=== PATIENT | female | born 1960 | race Caucasian/White ===

== ENCOUNTER 2024-09-21 14:27 | Observation (INO) ==
--- NOTE | 2024-09-21 15:12 | Emergency Department Note ---
HPI - General Adult General Chief complaint: Dizziness Stated complaint: Dizziness, Flank pain Time Seen by Provider: 09/21/24 14:35 Source: patient Mode of arrival: walk-in Limitations: no limitations History of Present Illness HPI narrative: This is a 63 year old female patient that presents to the ER with c/o having dizziness, generalized weakness, fatigue since Thursday. Patient states yesterday and today she felt dizzy and like she was going to pass out. Patient denies any chest pain currently. Patient denies any SOB, back pain, abdominal pain, numbness, or tingling. Onset (ago): day(s) (3) Location: Reports chest Radiation: Reports non-radiation Severity: mild Quality: Reports aching Pain Consistency: Reports intermittent Relieving factors: Reports none Exacerbating factors: Reports none Associated symptoms: Reports weakness Treatments prior to arrival: Reports none Related Data Home Medications Medication Instructions Recorded Confirmed losartan 100 1 tab PO DAILY 02/22/24 02/22/24 mg-hydrochlorothiazide 12.5 mg tablet Allergies Allergy/AdvReac Type Severity Reaction Status Date / Time No Known Drug Allergies Allergy Verified 09/21/24 15:23 Review of Systems Status of ROS 10 or more systems reviewed and unremark able except as noted in history and below Constitutional Denies: fever, chills, change in weight, fatigue, malaise, night sweats or change in sleep pattern Eyes Denies: change in vision, blurry vision, blind spots, light sensitivity, eye discomfort, eye discharge, dry eyes or increased production of tears Ears, nose, mouth, and throat Denies: throat pain, neck pain, throat swelling, difficulty swallowing, hoarseness or mouth pain Cardiovascular Reports: chest pain and lightheadedness; Denies: palpitations, edema, swelling of feet/ankles, shortness of breath with exertion, shortness of breath when lying down, leg pain with exertion or bluish discoloration of hands/feet Respiratory Denies: shortness of breath, cough, wheezing, stridor, pain on inspiration, change in phlegm color, coughing up blood or chest congestion Gastrointestinal Denies: abdominal pain, nausea, vomiting, coffee grounds in vomit, heartburn, diarrhea, constipation or bloating Genitourinary Denies: painful urination, urinary frequency, urinary urgency, urinary incontinence, blood in urine or difficulty voiding Musculoskeletal Denies: back pain, neck pain, extremity pain, extremity swelling, joint pain, limited range of motion or joint swelling Integumentary/Breast Denies: rash, itching, redness, skin pain, skin tenderness, skin swelling, sores or new lesion Neurological Reports: dizziness and vertigo; Denies: headache, numbness in extremities, weakness in extremities, lack of coordination, confusion, behavioral changes or slurred speech Psychiatric Denies: anxiety, mood swings, panic attacks, change in sleep pattern, hopelessness or loss of interest Endocrine Denies: excessive urination, excessive thirst, fatigue, cold intolerance, excessive sweating or flushing Hematologic/Lymphatic Denies: easy bruising, easy bleeding or enlarged lymph nodes Allergic/Immunologic Denies: hives, throat swelling, tongue swelling, facial swelling, wheezing or itchy eyes [facility] Medical History (Updated 09/21/24 @ 15:25 by Josephine Aranda RN) Tear of left meniscus as current injury HTN (hypertension) Surgical History Hx of section History of tonsillectomy Social History (Updated 02/23/24 @ 06:28 by Tigist Vitale APRN) Smoking status: never smoker Within the past year, how often did you have a drink containing alcohol: never Score interpretation: A score less than 3 is consistent with normal alcohol consumption. Non-prescribed substance use: denies use Problems where you live: no known problems Exam Constitutional: normal general appearance Vital Signs - 24 hr 09/21/24 14:35 Temperature 98 F Pulse Rate 84 Respiratory Rate 16 Blood Pressure 165/78 Pulse Oximetry 98 Oxygen Delivery Me thod Room Air HENMT: normocephalic, head/scalp atraumatic, hearing grossly normal bilaterally, external ears normal, nasal mucous membranes normal, external nose normal, oral mucous membranes normal and oropharynx normal Eyes: PERRL, EOMs intact bilaterally, conjunctivae normal and no scleral icterus Neck/C-Spine: visual inspection normal and trachea midline Lymph: no lymphadenopathy noted Chest: inspection of chest normal Respiratory: breath sounds equal bilaterally, normal respiratory effort, clear to auscultation bilaterally, no wheezes, no rales, no retractions, no use of accessory muscles and chest percussion normal Cardiovascular: normal heart rate noted, regular rhythm noted, no gallop, no rub, no murmur, no JVD, no clicks, peripheral pulses 2+ throughout, no bruits noted and no additional abnormal heart sounds Gastrointestinal: abdomen normal to inspection, abdomen soft to palpation, nontender to palpation, nontender to percussion, nondistended, normoactive bowel sounds, no hepatosplenomegaly, no masses, no pulsatile mass, no ascites and no hernia Genitourinary: no CVA tenderness Back/Pelvis: spine normal to inspection Extremities: normal to inspection, normal to palpation, no tenderness, full ROM, no joint enlargement and no deformity 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 VSS, no s/s of acute distress noted Vital Signs Vital signs: Vital Signs Temperature 98 F 09/21/24 14:35 Pulse Rate 84 09/21/24 14:35 Respiratory Rate 16 09/21/24 14:35 Blood Pressure 165/78 09/21/24 14:35 Pulse Oximetry 98 09/21/24 14:35 Oxygen Delivery Method Room Air 09/21/24 14:35 Temperature 98 F 09/21/24 14:35 Pulse Rate 84 09/21/24 14:35 Respiratory Rate 16 09/21/24 14:35 Blood Pressure 165/78 09/21/24 14:35 Pulse Oximetry 98 09/21/24 14:35 Oxygen Delivery Method Room Air 09/21/24 14:35 Medical Decision Making Differential Diagnosis Differential Diagnosis: viral illness Medical Records Medical records reviewed: Yes I reviewed the patient's medical records Lab Data Lab results reviewed: Yes I reviewed the patient's lab results Labs: Lab Results 09/21/24 Range/Units 14:45 WBC 9.8 H (4.3-9.3) K/uL RBC 4.7 (4.00-5.50) M/uL Hgb 14.6 (12.5-15.8) gm/dL Hct 43.3 (35.9-46.7) % MCV 91.9 (81.0-93.7) fl MCH 31.1 (27.6-32.2) pg MCHC 33.8 (33.1-35.3) g/dl RDW 13.0 (11.4-14.2) % Plt Count 320 (152-353) K/uL MPV 8.3 (6.9-10.8) fl Gran % 57.8 (47.8-71.3) % Lymph % (Auto) 31.3 (20.0-43.0) % [place] % (Auto) 9.6 (3.6-9.8) % Eos % (Auto) 0.8 (0.4-2.8) % Baso % (Auto) 0.5 (0.1-0.85) Lymph # (Auto) 3.1 (1.1-3.1) [place] # (Auto) 0.9 L (1.1-3.1) Eos # (Auto) 0.1 (0.0-0.2) Baso # (Auto) 0.1 (0.0-0.1) Absolute Gran (auto) 5.7 (2.3-6.0) Sodium 138 (136-145) mmol/L Potassium 3.8 (3.6-5.2) mmol/L Chloride 99.0 (98-107) mmol/L Carbon Dioxide 31 (21-32) mmol/L Anion Gap 8.0 (4-14) mEq/L BUN 21 H (7-18) mg/dL Creatinine 1.0 (0.6-1.3) mg/dL Estimated GFR 62.5 (>59.9) Glucose 100 (70-110) mg/dL Calcium 9.4 (8.5-10.1) mg/dL Total Bilirubin 0.83 (0.0-1.0) mg/dL AST 25 (15-37) U/L ALT 28 L (30-65) U/L Alkaline Phosphatase 63 (50-136) U/L Troponin I High Sens <4.00 L (4.0-60.4) ng/L Total Protein 7.7 (6.4-8.2) g/dL Albumin 4.1 (3.4-5.0) g/dL Imaging Data CT scan - head: Attestation: I have reviewed the pertinent imaging results. ECG Data Attestation: I have reviewed the pertinent ECG results. Discharge Plan Discharge Patient Disposition: Admitted As Observation Condition: Stable Chief Complaint: Dizziness Clinical Impression: Near syncope, Chest pain, Benign paroxysmal positional vertigo Prescriptions: No Action losartan-hydrochlorothiazide 100-12.5 mg tablet 1 tab PO DAILY Patient Comments: TAKE 1 TABLET(S) ORAL EVERY DAY NEEDS LABS AND FOLLOW UP Print Language: Trinidadian Referrals: Rhonda Hyde NP [Primary Care Provider] - Time of Disposition: 15:44
[2024-09-21 15:17] LABS: Basophils #(Absolute) Auto 0.1 (0.0-0.1); Basophils%(Percent) Auto 0.5 (0.1-0.85); Eosinophils#(Absolute)Auto 0.1 (0.0-0.2); Eosinophils%(Percent) Auto 0.8 % (0.4-2.8); Granulocytes % - Auto 57.8 % (47.8-71.3); Granulocytes#(Absolute)- Auto 5.7 (2.3-6.0); Hematocrit 43.3 % (35.9-46.7); Mean Corpuscular Volume 91.9 fl (81.0-93.7); Monocytes #(Absolute)- Auto 0.9 (1.1-3.1); Monocytes %(Percent)- Auto 9.6 % (3.6-9.8); Platelet Count 320 K/uL (152-353); White Blood Count 9.8 K/uL (4.3-9.3)
[2024-09-21 15:19] LABS: Carbon Dioxide 31 mmol/L (21-32); Glucose 100 mg/dL (70-110); Potassium 3.8 mmol/L (3.6-5.2); Sodium 138 mmol/L (136-145)
[2024-09-21] MEDS ORDERED: 0.9 % SODIUM CHLORIDE 1000 ML 1,000 ML IV ONE (19:10)
[2024-09-21] MEDS: 0.9 % SODIUM CHLORIDE 1000 ML 1,000 ML IV STA (19:22)
[2024-09-21] MEDS ORDERED: NITROGLYCERIN 0.4 MG TAB.SUBL (BOTTLE) SL PRN (19:32)
[2024-09-21] MEDS ORDERED: MORPHINE SULFATE 2 MG/ML CARTRIDGE IV PRN (19:32)
[2024-09-22 06:57] LABS: Basophils #(Absolute) Auto 0.1 (0.0-0.1); Eosinophils#(Absolute)Auto 0.1 (0.0-0.2); Monocytes %(Percent)- Auto 9.1 % (3.6-9.8)
[2024-09-22 06:59] LABS: Basophils%(Percent) Auto 0.6 (0.1-0.85); Eosinophils%(Percent) Auto 1.2 % (0.4-2.8); Granulocytes#(Absolute)- Auto 5.8 (2.3-6.0); Hematocrit 38.7 % (35.9-46.7); Mean Corpuscular Volume 92.4 fl (81.0-93.7); Platelet Count 250 K/uL (152-353); White Blood Count 11.1 K/uL (4.3-9.3)
[2024-09-22 07:16] LABS: Potassium 3.8 mmol/L (3.6-5.2)
[2024-09-22 08:15] LABS: INR 0.97
[2024-09-22 08:17] VITALS: RESP 19
[2024-09-22] MEDS: ASPIRIN 81 MG TAB.CHEW PO SCH (08:57)
[2024-09-22] MEDS: hydroCHLOROthiazide 25 MG TABLET PO SCH (08:59)
[2024-09-22] MEDS: ENOXAPARIN SODIUM 40 MG/0.4 ML SYRINGE SUBQ SCH (09:24)
[2024-09-22] MEDS: LOSARTAN POTASSIUM 50 MG TABLET PO SCH (09:40)
[2024-09-22 12:42] VITALS: BP 146/79; PULSE 80; TEMP 97.6
--- NOTE | 2024-09-22 14:49 | Short Stay Summary ---
H&P: HPI History of Present Illness Chief complaint: Dizziness, Flank pain Narrative: This is a 63 year old female patient that presents to the ER with c/o having dizziness, generalized weakness, fatigue since Thursday. Patient states yesterday and today she felt dizzy and like she was going to pass out. Patient denies any chest pain currently. Patient denies any SOB, back pain, abdominal pain, numbness, or tingling. Admitted patient to med/surg for further observation and treatment. Review of Systems Status of ROS 10 or more systems reviewed and unremark able except as noted in history and below Constitutional Denies: fever, chills, change in weight, fatigue, malaise, night sweats or change in sleep pattern Eyes Denies: change in vision, blurry vision, blind spots, light sensitivity, eye discomfort, eye discharge, dry eyes or increased production of tears Ears, nose, mouth, and throat Reports: vertigo; Denies: throat pain, neck pain, throat swelling, difficulty swallowing, hoarseness or mouth pain Cardiovascular Reports: chest pain and lightheadedness; Denies: palpitations, edema, swelling of feet/ankles, shortness of breath with exertion, shortness of breath when lying down, leg pain with exertion or bluish discoloration of hands/feet Respiratory Denies: shortness of breath, cough, wheezing, stridor, pain on inspiration, change in phlegm color, coughing up blood or chest congestion Gastrointestinal Denies: abdominal pain, nausea, vomiting, coffee grounds in vomit, heartburn, diarrhea, constipation, bloating or difficulty swallowing Genitourinary Denies: painful urination, urinary frequency, urinary urgency, urinary incontinence, blood in urine or difficulty voiding Musculoskeletal Denies: back pain, neck pain, extremity pain, extremity swelling, joint pain, limited range of motion or joint swelling Integumentary/Breast Denies: rash, itching, redness, skin pain, skin tenderness, skin swelling, sores or new lesion Neurological Reports: dizziness and vertigo; Denies: headache, numbness in extremities, weakness in extremities, lack of coordination, confusion, behavioral changes or slurred speech Psychiatric Denies: anxiety, mood swings, panic attacks, change in sleep pattern, hopelessness or loss of interest Endocrine Denies: excessive urination, excessive thirst, fatigue, cold intolerance, excessive sweating or flushing Hematologic/Lymphatic Denies: easy bruising, easy bleeding or enlarged lymph nodes Allergic/Immunologic Denies: hives, throat swelling, tongue swelling, facial swelling, wheezing or itchy eyes PFSH PFSH Medical History Tear of left meniscus as current injury HTN (hypertension) Surgical History Hx of section History of tonsillectomy Social History Smoking status: never smoker Within the past year, how often did you have a drink containing alcohol: never Score interpretation: A score less than 3 is consistent with normal alcohol consumption. 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 Constitutional: normal general appearance, no apparent distress, abnormal body habitus (obese), no limitations and alert Vital Signs - 24 hr 09/21/24 14:35 09/21/24 19:34 09/21/24 20:00 Temperature 98 F 98 F 98.3 F Pulse Rate 84 84 Pulse Rate [Bilate ral] 69 Respiratory Rate 16 16 18 Blood Pressure 165/78 165/78 Blood Pressure [Ri ght Arm] 143/78 Pulse Oximetry 98 98 99 Oxygen Delivery Me thod Room Air Room Air Fraction of Inspir ed Oxygen 09/21/24 21:34 09/21/24 23:45 09/22/24 03:44 Temperature 98.3 F 97.6 F Pulse Rate Pulse Rate [Bilate ral] 75 71 Respiratory Rate 16 20 Blood Pressure Blood Pressure [Ri ght Arm] 131/80 112/67 Pulse Oximetry 97 97 99 Oxygen Delivery Me thod Room Air Room Air Room Air Fraction of Inspir ed Oxygen 21 09/22/24 08:00 09/22/24 08:14 09/22/24 09:40 Temperature 98.4 F Pulse Rate Pulse Rate [Bilate ral] 65 Respiratory Rate 19 Blood Pressure 125/64 125/64 Blood Pressure [Ri ght Arm] 125/64 Pulse Oximetry 97 Oxygen Delivery Me thod Room Air Fraction of Inspir ed Oxygen 09/22/24 11:50 09/22/24 12:41 Temperature 97.6 F Pulse Rate Pulse Rate [Bilate ral] 72 80 Respiratory Rate 19 Blood Pressure Blood Pressure [Ri ght Arm] 145/78 146/79 Pulse Oximetry 94 L 97 Oxygen Delivery Me thod Room Air Room Air Fraction of Inspir ed Oxygen HENMT: normocephalic, head/scalp atraumatic, hearing grossly normal bilateral ly, external ears normal, nasal mucous membranes normal, external nose normal, oral mucous membranes normal and oropharynx normal Eyes: PERRL, EOMs intact bilaterally, conjunctivae normal and no scleral icterus Neck/C-Spine: visual inspection normal and trachea midline Lymph: no lymphadenopathy noted Chest: inspection of chest normal Respiratory: breath sounds equal bilaterally, normal respiratory effort, clear to auscultation bilaterally, no wheezes, no rales, no retractions, no use of accessory muscles and chest percussion normal Cardiovascular: normal heart rate noted, regular rhythm noted, no gallop, no rub, no murmur, no JVD, no clicks, peripheral pulses 2+ throughout, no bruits noted and no additional abnormal heart sounds Gastrointestinal: abdomen normal to inspection, abdomen soft to palpation, nontender to palpation, nontender to percussion, nondistended, normoactive bowel sounds, no hepatosplenomegaly, no masses, no pulsatile mass, no ascites and no hernia Genitourinary: no CVA tenderness Back/Pelvis: spine normal to inspection Extremities: normal to inspection, normal to palpation, no tenderness, full ROM, no joint enlargement and no deformity 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, no movement abnormality noted, no focal motor deficit noted, no sensory deficits noted, gait normal, speech normal, coordination normal, no pronator drift noted, no fasciculations noted and GCS normal Psychiatry: mental status grossly normal, oriented x3, thought process normal and cooperative Feel stressed/tense/nervous/anxious/difficulty sleeping: to some extent Life stressors: other (event that caused her to sweat and nearly pass out yesterday) Skin: skin color abnormal Reports (pale), no rash, no lesions, no ecchymosis noted, no wounds, no lacerations, skin turgor normal, no jaundice, no petechiae, no mottling, nails normal and no alopecia Assessment and Plan Assessment and Plan (1) Syncope: Qualifiers: Syncope type: unspecified Qualified Code(s): R55 - Syncope and collapse Code(s): R55 - Syncope and collapse (2) Dizziness: Code(s): R42 - Dizziness and giddiness (3) Muscle weakness (generalized): Code(s): M62.81 - Muscle weakness (generalized) (4) Fatigue: Qualifiers: Fatigue type: unspecified Qualified Code(s): R53.83 - Other fatigue Code(s): R53.83 - Other fatigue (5) Leukocytosis: Qualifiers: Leukocytosis type: unspecified Qualified Code(s): D72.829 - Elevated w tiffany blood cell count, unspecified Code(s): D72.829 - Elevated white blood cell count, unspecified (6) Elevated d-dimer: Assessment and Plan: Resolved. Code(s): R79.89 - Other specified abnormal findings of blood chemistry Plan Losartan Potassium 100 mg PO DAILY Aspirin 324 mg PO DAILY Hydrochlorothiazide 12.5 mg PO DAILY Enoxaparin Sodium 40 mg SUBQ DAILY Nitroglycerin 0.4 mg SL Q5M PRN Morphine Sulfate 2 mg IV Q4H PRN A1C Check Glucose Tolerance Test Out-patient Nuclear Stress Test - Recommended Discharge home for self care. Results Labs Labs: CBC 09/21/24 09/22/24 Range/Units 14:45 06:45 WBC 9.8 H 11.1 H (4.3-9.3) K/uL RBC 4.7 4.2 (4.00-5.50) M/uL Hgb 14.6 12.9 (12.5-15.8) gm/dL Hct 43.3 38.7 (35.9-46.7) % Plt Count 320 250 (152-353) K/uL Gran % 57.8 52.0 (47.8-71.3) % Lymph % (Auto) 31.3 37.1 (20.0-43.0) % [place] % (Auto) 9.6 9.1 (3.6-9.8) % Eos % (Auto) 0.8 1.2 (0.4-2.8) % Baso % (Auto) 0.5 0.6 (0.1-0.85) Lymph # (Auto) 3.1 4.1 H (1.1-3.1) [place] # (Auto) 0.9 L 1.0 L (1.1-3.1) Eos # (Auto) 0.1 0.1 (0.0-0.2) Baso # (Auto) 0.1 0.1 (0.0-0.1) Absolute Gran (auto) 5.7 5.8 (2.3-6.0) CMP 09/21/24 09/22/24 14:45 06:45 Sodium 138 139 Potassium 3.8 3.8 Chloride 99.0 103.0 Carbon Dioxide 31 28 BUN 21 H 20 H Creatinine 1.0 0.8 Glucose 100 93 Calcium 9.4 8.9 Liver Function 09/21/24 09/22/24 Range/Units 14:45 06:45 Total Bilirubin 0.83 0.62 (0.0-1.0) mg/dL AST 25 26 (15-37) U/L ALT 28 L 27 L (30-65) U/L Alkaline Phosphatase 63 52 (50-136) U/L Albumin 4.1 3.4 (3.4-5.0) g/dL Pulse Oximetry Attestation: I have reviewed the pertinent pulse oximetry results. ECG Attestation: I have reviewed the pertinent ECG results. Prior ECG tracings: available for review Imaging Imaging ordered: Chest x-ray and CT scan - head Radiologist's impression: XR CHEST 1V Date of Service: 09/21/24 HISTORY: DIZZINESS; CV/STC COMPARISON: February 22, 2024 FINDINGS: The trachea is midline. The cardiac silhouette is unremarkable. The lungs are clear without focal infiltrate or effusion. The bony thorax is unremarkable. IMPRESSION: No acute cardiopulmonary disease. CT HEAD/BRAIN WO CON Date of Service: 09/21/24 HISTORY: near syncopenear syncope; COMPARISON: No relevant prior studies were available for comparison at the time of interpretation.. TECHNIQUE: CT images were obtained. Multiplanar reconstructions were created on a separate workstation and used during interpretation. All CT scans at this facility is dose modulation, iterative reconstruction, and/or weight-based dosing as appropriate to reduce radiation to levels as low as reasonably achievable (ALARA). Postprocessing details, radiation dose, and contrast dose (if applicable) are recorded in the patient's medical record. FINDINGS: Head: Acute findings: There is no intracranial hemorrhage. No mass effect. No intra- axial or extra-axial fluid collection. There is no mass. No tentorial, uncal, or tonsillar herniation. Brain volume and white matter: Brain volume and attenuation is normal for age. Ventricles: No hydrocephalus Midline structures: Pituitary gland and corpus callosum are normal. Posterior fossa and skull base: Cerebellum and posterior fossa are within normal limits. Basal cisterns are not effaced. Sinuses and mastoids: Paranasal sinuses and mastoid air cells are predominantly clear. Globes and Orbits: Globes are intact. Bony orbits are intact. Orbital contents are unremarkable. Skull and soft tissues: No depressed skull fracture. Calvarium appears intact. No scalp injury is identified. IMPRESSION: 1. No acute intracranial abnormality DS: Providers Provider Date of admission: 09/21/24 18:24 Primary care physician: Rhonda Hyde NP Admitting clinician: Sharon Egan Attending physician on admission: Kaya Persaud Attending physician on discharge: Kaya Persaud Discharging clinician: Kaya Persaud Anticipated date of discharge: 09/22/24 DS: Summary Hospital Course Hospital Course: This is a 63 year old female patient that presents to the ER with c/o having dizziness, generalized weakness, fatigue since Thursday. Patient states yesterday and today she felt dizzy and like she was going to pass out. Patient denies any chest pain currently. Patient denies any SOB, back pain, abdominal pain, numbness, or tingling. Admitted patient to med/surg for further observation and treatment. Patient WBC elevated through the night. Elevated D-Dimer resolved through the night. 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 Patient is to follow up with PCP in 5-7 days of discharge. Out-patient nuclear stress test is recommended. Status at Discharge Overall status at discharge: patient is back to baseline Time Spent with Patient Time attestation: Total time spent providing and/or coordinating discharge services: Discharge Plan Discharge Disposition: Home, Self-Care Condition: Improved Discharge Medications: Continued losartan-hydrochlorothiazide 100-12.5 mg tablet 1 tab PO DAILY Patient Comments: TAKE 1 TABLET(S) ORAL EVERY DAY NEEDS LABS AND FOLLOW UP Discharge Orders: Discharge Order (Routine); Ordered 09/22/24 Ordered By: Kaya Persaud Activity: as per physical therapy and increase activity as tolerated Diet: advance to your usual diet Activity Restrictions/Additional Instructions: don't skip meals and limit carbs try 5 small meals a day still needs 2 or 3 hour glucose tolerance test as an outpatient and also carotids, nuclear stress test and aortic aneurysm screen as an outpatient no driving until cleared by her PCP and follow up PCP in the next week Forms: Portal/Health Info Access Inst Follow-Ups: Rhonda Hyde NP [Primary Care Provider] - 09/29/24 10:50 am
== END 2024-09-22 15:48 | disposition home or self-care (01) ==
LOC: ED 14:27 → MS 14:27
PROVIDERS: ADMIT Family Medicine; ATTEND Family Medicine
DX: R55 Syncope and collapse; H81.10 Benign paroxysmal vertigo, unspecified ear; M62.81 Muscle weakness (generalized); I10 Essential (primary) hypertension; D72.829 Elevated white blood cell count, unspecified; R79.89 Other specified abnormal findings of blood chemistry; Z23 Encounter for immunization; R07.89 Other chest pain; Z79.899 Other long term (current) drug therapy; R53.83 Other fatigue